=== PATIENT | female | born 1995 | race Caucasian/White ===

== ENCOUNTER 2017-03-13 13:24 | Emergency (ER) | payer OTHER ==
--- NOTE | 2017-03-13 14:23 | DIAGNOSTIC IMAGING REPORT ---
PROCEDURE: CT HEAD WITHOUT CONTRAST INDICATION: HEADACHE TECHNIQUE: Axial CT images were acquired through the head. Coronal and sagittal reformations were created. COMPARISON: None. FINDINGS: No intracranial hemorrhage or extraaxial fluid collections. Ventricles are normal in size, shape and position. There is no mass, mass effect or midline shift. The wright-white matter differentiation is normal. There is no edema. The calvarium is intact. The paranasal sinuses and mastoid air cells are normally aerated. The extracranial soft tissues and orbits are normal. IMPRESSION: 1. No CT evidence of acute intracranial process. 2. Findings discussed with Bety at 02:[address] scans at this facility use dose modulation, iterative reconstruction, and/or weight-based dosing when appropriate to reduce radiation dose to as low as reasonably achievable.
--- NOTE | 2017-03-13 14:25 | DIAGNOSTIC IMAGING REPORT ---
PROCEDURE: XR CERVICAL SPINE 2 OR 3 VIEW INDICATION: NECK PAIN TECHNIQUE: Three views. COMPARISON: None. FINDINGS: Osseous structures and disc spaces are normal. No evidence of an acute process or fracture. IMPRESSION: 1. Negative cervical spine.
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
--- NOTE | 2017-03-13 14:31 | ED ORDER SUMMARY ---
..... Patient: SARAH VEGA OrderSheet [facility] VisitID: [id number] [address] [place] [address] 21y, F Registration Date/Time: 03/13/2017 ORDER SHEET Weight: 77.1 kg (stated) Allergies: Amoxicillin, Codeine, Penicillins, Xanax GENERAL ORDERS: Cervical Spine 2 or 3V Urgent (13:42 03/13/2017 EKoroleva P.A.-C) (Ack 13:43 LNations ER Tech1) CT Head wo Cont Urgent (13:42 03/13/2017 EKoroleva P.A.-C) (Ack 13:43 LNations ER Tech1) (14:17 PWeiler ER Tech1) POC - Urine hCG (13:51 03/13/2017 EKoroleva P.A.-C) (14:03 PWeiler ER Tech1) MEDICATION ORDERS: IV FLUIDS: ORDER SHEET NOTES: [Electronically signed by Vanessa Albert P.A.-C (14:57 03/13/2017)] [Electronically signed by Horacio Aquino R.N. (11:33 03/16/2017)] [Electronically locked/signed by Horacio Aquino R.N. (11:33 03/16/2017)]
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
--- NOTE | 2017-03-13 14:31 | ED ORDER SUMMARY ---
..... Patient: SARAH VEGA OrderSheet [facility] VisitID: [id number] [address] [place] [address] 21y, F Registration Date/Time: 03/13/2017 ORDER SHEET Weight: 77.1 kg (stated) Allergies: Amoxicillin, Codeine, Penicillins, Xanax GENERAL ORDERS: Cervical Spine 2 or 3V Urgent (13:42 03/13/2017 EKoroleva P.A.-C) (Ack 13:43 LNations ER Tech1) CT Head wo Cont Urgent (13:42 03/13/2017 EKoroleva P.A.-C) (Ack 13:43 LNations ER Tech1) (14:17 PWeiler ER Tech1) POC - Urine hCG (13:51 03/13/2017 EKoroleva P.A.-C) (14:03 PWeiler ER Tech1) MEDICATION ORDERS: IV FLUIDS: ORDER SHEET NOTES: [Electronically signed by Vanessa Albert P.A.-C (14:57 03/13/2017)] [Electronically signed by Horacio Aquino R.N. (11:33 03/16/2017)] [Electronically locked/signed by Horacio Aquino R.N. (11:33 03/16/2017)]
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
--- NOTE | 2017-03-16 11:34 | ED MED RECONCILIATION SUMMARY ---
Patient: SARAH VEGA Medication Reconciliation Report [facility] VisitID: [id number] [place] [address] 21y, F Registration Date/Time: 03/13/2017 Weight: 77.1 kg Height/Length: 73 in. BMI: 22.4 ALLERGIES: Amoxicillin, Codeine, Penicillins, Xanax The patient's Home Medications are listed below: THE FOLLOWING MEDICATIONS NEED TO BE RECONCILED: Adderall Oral The source(s) of the original Home Medication information: Not obtained. The following Medications were given to the patient in the Emergency Department: None. The following Medications were prescribed to the patient: Take OTC medications according to label instructions. Available over the counter. -- Vanessa Albert, P.A.-C Acetaminophen (available over the counter): take according to label instructions. -- Vanessa Albert, P.A.-C Motrin (available over the counter): take according to label instructions. -- Vanessa Albert, P.A.-C
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
--- NOTE | 2017-03-16 11:34 | ED MAR SUMMARY ---
..... Medication Administration Record [facility] [address] [place], [place] [id number] Patient: SARAH VEGA Visit ID: [id number] 21y, F Weight: 77.1 kg Height/Length: 73 in BMI: 22.4 ALLERGIES: Amoxicillin, Codeine, Penicillins, Xanax
--- NOTE | 2017-03-16 11:34 | ED MED RECONCILIATION SUMMARY ---
Patient: ASRAH VEGA Medication Reconciliation Report [facility] VisitID: [id number] [place] [address] 21y, F Registration Date/Time: 03/13/2017 Weight: 77.1 kg Height/Length: 73 in. BMI: 22.4 ALLERGIES: Amoxicillin, Codeine, Penicillins, Xanax The patient's Home Medications are listed below: THE FOLLOWING MEDICATIONS NEED TO BE RECONCILED: Adderall Oral The source(s) of the original Home Medication information: Not obtained. The following Medications were given to the patient in the Emergency Department: None. The following Medications were prescribed to the patient: Take OTC medications according to label instructions. Available over the counter. -- Vanessa Albert, P.A.-C Acetaminophen (available over the counter): take according to label instructions. -- Vanessa Albert, P.A.-C Motrin (available over the counter): take according to label instructions. -- Vanessa Albert, P.A.-C
--- NOTE | 2017-03-16 11:34 | ED MAR SUMMARY ---
..... Medication Administration Record [facility] [address] [place], [place] [id number] Patient: SARAH VEGA Visit ID: [id number] 21y, F Weight: 77.1 kg Height/Length: 73 in BMI: 22.4 ALLERGIES: Amoxicillin, Codeine, Penicillins, Xanax
== END 2017-03-13 14:50 | disposition home or self-care (01) ==
LOC: ED SRH 13:24
DX: S06.0X0A Concussion without loss of consciousness, initial encounter (principal); S16.1XXA Strain of muscle, fascia and tendon at neck level, initial encounter; V43.62XA Car passenger injured in collision with other type car in traffic accident, initial encounter; Y92.488 Other paved roadways as the place of occurrence of the external cause; Z72.0 Tobacco use